=== PATIENT | male | born 1950 | race Caucasian/White ===

== ENCOUNTER → 2023-04-12 07:56 | Outpatient (REF) | payer MEDICARE, OTHER, SELFPAY | LOC: PAVMRI 07:56 | PROVIDERS: ATTENDING PHYSICIAN Internal Medicine Cardiovascular Disease; FAMILY PHYSICIAN Family Medicine; REFERRING PHYSICIAN Internal Medicine Cardiovascular Disease | DX: I48.91 Unspecified atrial fibrillation (principal); I49.3 Ventricular premature depolarization; I10 Essential (primary) hypertension | CPT/HCPCS: 75561; 75565; A9585 ==

== ENCOUNTER 2023-08-04 08:38 | Day surgery (SDC) | payer MEDICARE, OTHER, SELFPAY ==
[2023-07-19 09:30] VITALS: BMI 27.9
--- NOTE | 2023-07-19 10:29 | HPS.HSE ---
Family Physician
-
Family Physician: NO INTERVIEW UNKNOWN
Chief Complaint
-
PVCs.
History of Present Illness
The patient is a 72 year old male presenting today for PVCs. He is relatively asymptomatic with this diagnosis. He states that while undergoing a previous colonoscopy, the hospital staff alerted him as to 'something abnormal' on his EKG.
He was subsequently evaluated by his chiropractic care and noted to have PVCs. He then underwent testing for his PVCs and, during an exercise stress test, was also found to have paroxysmal atrial fibrillation with a spontaneous return to normal sinus
rhythm. He is on current pharmacological therapy with Carvedilol. He has been compliant with Eliquis for oral anticoagulation. A more recent Holter monitor revealed 39,000 PVCs with 70 runs, the longest of which was 6 beats. A 5 day CAM monitor
demonstrated a 29% PVC burden. Given the frequency of his PVCs, it is recommended he proceed with an EP study and PVC ablation. He denies any current complaints today such as chest pain, shortness of breath, nausea, vomiting, diarrhea,
lightheadedness, dizziness, cough, sore throat, or fever.
Medical History
Past Medical History
Past Medical History: Reports Other
Additional Past Medical History:
1. PVCs.
2. Paroxysmal atrial fibrillation, pharmacological therapy with Carvedilol, oral anticoagulation with Eliquis.
3. Hypertension.
4. Right carotid bruit.
5. Mild mitral regurgitation.
6. Mild tricuspid regurgitation.
7. Emphysema per records.
8. Colon polyps.
9. Osteoarthritis, status post right total hip arthroplasty 2017.
10. Bladder dysfunction requiring self catheterization.
11. Agent orange exposure.
12. Hearing impairment bilaterally.
13. Remote history of tobacco abuse.
Past Surgical History: Reports Other
Additional Past Surgical History:
1. Right total hip arthroplasty.
2. Ureteroplasty.
3. Bladder diverticulum removal.
4. Multiple colonoscopies.
Social History
Tobacco: Former Smoker (He is a former 1 pack per day cigarette smoker who quit tobacco altogether 20 years ago. )
Alcohol: Other (He drinks wine approximately 1 day a week. )
Personal:
Living: Other (He lives in a 2 story home with his . )
Family History
Family History: Not pertinent
Allergies / Home Medications
Allergy/Medication List:
Home medications:
1. Amlodipine 5 mg p.o. daily.
2. Eliquis 5 mg p.o. twice a day.
3. Carvedilol 6.25 mg p.o. twice a day.
4. Magnesium 500 mg p.o. daily.
Allergies: No known allergies.
Review of Systems
-
A 12 point ROS was completed and negative except as noted: Yes
Physical Exam
Vital Signs
Blood pressure 149/76. Heart rate 64. Respirations 18. Pulse ox 98% on room air.
Height 5 feet, 10.5 inches. Weight 89.3 kg. BMI 27.8.
Physical Exam
General: Well Developed, Well Nourished and No Apparent Distress
HEENT: NormoCephalic, Moist mucous membranes, Atraumatic and PERRLA
Respiratory: Clear
Cardiac: Regular Rhythm (with frequent ectopy. ) and Carotid Bruits (Right-sided )
GI: Soft, Non Tender and Non Distended
Musculoskeletal: Normal Gait & Station
Skin: Warm and Dry
Neuro: AO x 3 and Nonfocal/grossly intact
Laboratory Results
-
DIAGNOSTIC STUDIES as of 07/19/2023: White blood cell count 7.0. Hemoglobin 14.2. Platelet count 175,000. PT 14.6. INR 1.16. Sodium 139. Potassium 4.8. BUN 28. Creatinine 1.1. Glucose 95. Calcium 9.5. Magnesium 2.2. AST 29. ALT 24. Albumin 4.1. Type
and screen A positive.
EKG 07/19/2023: Sinus rhythm with marked sinus arrhythmia with first degree AV block and frequent PVCs.
Impression/Plan
-
IMPRESSION/PLAN:
1. PVCs: The patient is in need of an EP study and PVC ablation with Dr. Joni Hagen on 08/04/2023. The benefits and risks of the procedure have been explained to the patient. The patient understands these risks and wishes to proceed. He is aware
to hold his Carvedilol 72 hours prior to his procedure. He will also hold his Eliquis the night before and morning of his procedure.
[2023-08-04] VITALS (17 sets, daily range): BP systolic 128–157; BP diastolic 76–93
[2023-08-04] MEDS: NSS 500 IV (09:37)
--- NOTE | 2023-08-04 10:40 | PTCARENOTE ---
Pt self cathed at this time
--- NOTE | 2023-08-04 11:23 | ITS.CL.ABL ---
Naturopath - Ablation
Ablation
Procedure Report:
Primary Airport Ramp Supervisor: Popeye Humphrey MD
Procedure Date: 08/04/2023
Patient History:
The patient is a pleasant 73-year-old male with a past medical history significant for hypertension, bladder dysfunction, PAF, PVCs with 29% burden; noted normal LVEF on TTE but reduced on CMR (unclear if ectopy driven gating issue).
See H&P for complete history.
Indication:
High burden monomorphic PVCs
Reduced LVEF on CMR
Procedure
X PVC/VT Ablation procedure (78451) -- includes 3D mapping
X +LA/CS pacing (73204)
X +Intracardiac ultrasound (72060)
[ ]+Transseptal (24472)
[ ]+IV drug (01980)
[ ]+Other Arrhythmia (89478)
Method
NPO status confirmed. Grounding pad applied. Defibrillator pads applied. Continuous surface ECG, pulse oximetry, and blood pressure were monitored. Procedure was performed under general anesthesia, with anesthesia services.
Both groins were clipped, prepped with Chloraprep, and draped in sterile fashion. Time out was called. Local anesthesia administered. The right and left femoral veins were accessed for catheter placement, using ultrasound guidance, micro-puncture
needle/wire, and modified seldinger technique. 3 sheaths were placed. Arterial access was obtained using ultrasound guidance and a short 5fr sheath was placed upsized to braided long 9 fr sheath.
The following catheters were used:
X TactiFlex SE (D/F-curve) ablation catheter
X Viewflex 9Fr ICE catheter
X Inquiry decapolar 6Fr diagnostic catheter
[ ] 6Fr quadrapolar diagnostic catheter
X HD Grid multielectrode mapping catheter
Heparin was given following arterial access. Heparin was given to achieve and maintain a target ACT of 300-400 seconds.
ICE and 3D mapping was performed to identify relevant cardiac structures. A careful 3D map was created to assess for regions of low-voltage and abnormal electrogram signals (late potentials, fractionation). See synopsis for details.
Catheter-based radiofrequency ablation was performed using a [employer] power generator. Target power was 30-40 [place]. See synopsis for details
At procedure conclusion, ICE was used to rule out pericardial effusion. Hemostasis was obtained with figure of 8 suture at left groin(venous access) and manual pressure for arterial access (right groin). Protamine was used for reversal. ACT < 150
for arterial sheath pull.
Estimated Blood Loss
5-10 mL
Complications
None
Procedure Synopsis:
LV mapping was performed using HD grid catheter. Area of earliest activation for PVC was mapped to the area of the posterior medial Pap/left posterior fascicle the inferior portion of the LV near septum/base. Careful attention was placed in not
only taking area of PVC activation but the conduction system. Following high density mapping, HD grid was replaced with the Tinteo SE irrigated RF catheter. Mapping was fine-tuned with the ablation catheter with passive PVC mapping and pace
mapping. Spot of earliest activation was noted at 24 ms pre-QRS with a QS pattern on unipolar EGM. Pace mapping demonstrated 12 out of 12 morphology match. RF was delivered with careful monitoring of impedance, temperature, time. Following
initial ablation lesion, there was suppression of PVCs. Consolidation ablation was performed in this region again with careful monitoring of conduction system. There was no evidence of AV block during RF. Areas with his signal or atrial signal
were avoided. Following completion of RF lesions, a waiting period was performed. No clinical PVCs were noted for greater than 30 minutes. Following completion of procedure, electrophysiology study was performed. Catheter was removed and
hemostasis achieved as noted above.
Fluoroscopy: 8.5 minutes; 23.15 mGy; DAP 3.28
Contrast used: 0 cc
Baseline Intervals:
Rhythm: SR
NV: 196 ms
QRS: 75 ms
QT: 369 ms
QTc: 359 ms
A-A: 1056 ms
R-R: 1056 ms
AH: 111 ms
HV: 53 ms
Post-Procedure Intervals:
Rhythm: SR
NV: 201 ms
QRS: 78 ms
QT: 411 ms
QTc: 406 ms
A-A: 1025 ms
R-R: 1025 ms
AVWB: 500 ms
AVNERP: 600/450 ms; no inducible arrhythmias.
AH: 127 ms
HV: 58 ms
Recommendations
1. Bedrest with straight-leg precautions as ordered
2. Admit with anticipate discharge home tomorrow after overnight observation
3. Resume home medications as indicated
4. Ok to resume anticoagulation if patient and groin sites stable
5. Plan for follow-up in office
Joni Hagen DO
Clinical Cardiac Brand Manager
cc: Popeye Humphrey MD
[2023-08-04 12:34] LABS: ACT-LR - POC 261 Seconds (116-155)
[2023-08-04 12:51] LABS: ACT-LR - POC 324 Seconds (116-155)
[2023-08-04 13:09] LABS: ACT-LR - POC 334 Seconds (116-155)
[2023-08-04 13:47] LABS: ACT-LR - POC 397 Seconds (116-155)
[2023-08-04 14:10] LABS: ACT-LR - POC 145 Seconds (116-155)
[2023-08-04 15:31] LABS: ACT-LR - POC > 397 Seconds (116-155)
--- NOTE | 2023-08-04 18:31 | PTCARENOTE ---
Pt received post procedure awake, alert and oriented. Bilateral groin sites WNL. Pt denies any pain or discomfort. Room air sat 99%. Pt OOB post bedrest at 1830 and ambulated to the bathroom to straight cath himself. Bilateral groin dressings dry
after ambulating.
[2023-08-04] MEDS: COREG 6.25 MG PO (19:25)
--- NOTE | 2023-08-04 20:26 | PTCARENOTE ---
Assumed care of patient at change of shift. Patient AAOx3, denies any chest pain or discomfort. Ambulated self in room, denies dizziness. B/l groin site dressings C/D/I, and DP palpable. Tele monitor shows SR w/ 1st AV block and occasional PVCs.
Patient aware of POC, and call vann in reach.
[2023-08-05 03:32] VITALS: BP 156/92
[2023-08-05 04:01] LABS: Hematocrit 39.2 % (39.0-52.0); Hemoglobin 13.4 g/dL (13.0-18.0); Mean Corp Hgb Conc. 34.2 g/dL (33.0-37.0); Mean Corpuscular Hgb 32.8 pg (27.0-31.0); Mean Corpuscular Volume 96.1 fL (80.0-94.0); Mean Platelet Volume 10.6 fL (7.4-10.4); Platelet Count 136 10^3/uL (130-400); Red Blood Cell Count 4.08 10^6/uL (4.70-6.10); Red Cell Dist. Width 12.3 % (11.5-14.5); White Blood Cell Count 6.6 10^3/uL (4.8-10.8)
[2023-08-05 04:28] LABS: Blood Urea Nitrogen 16 mg/dl (9-20); Calcium 8.6 mg/dl (8.4-10.2); Carbon Dioxide 25 mmol/L (22-30); Chloride 108 mmol/L (98-107); Estimated Creatinine Clearance 77 ml/min; Glucose 90 mg/dl (70-99); Magnesium 2.1 mg/dl (1.6-2.3); Potassium 4.1 mmol/L (3.5-5.1); Sodium 139 mmol/L (135-145); eGFR > 60.00
[2023-08-05] MEDS: NORVASC 5 MG PO (07:18)
[2023-08-05] MEDS: COREG 6.25 MG PO (07:18)
[2023-08-05] MEDS: MAGNESIUM OXIDE 500 MG PO (07:18)
[2023-08-05] MEDS: ELIQUIS 5 MG PO (07:18)
[2023-08-05 07:21] VITALS: BP 159/97
[2023-08-05 07:22] VITALS: BP 159/92
--- NOTE | 2023-08-05 09:07 | CM ---
Chart reviewed. Patient is independent of ADLS, lives with his in a [address], [address], 0 DME. Plan is for the patient to return home.
--- NOTE | 2023-08-05 10:05 | W.PN.CARDCBS ---
Addendum entered and electronically signed by Kvng Lino MD 08/05/23 10:39:
Patient seen and examined
Telemetry demonstrates no PVCs and 1 4 beat NSVT
CUP SETTER LOCKSTITCH note and assessment
Agree with CUP SETTER LOCKSTITCH plan
Examination:
Right femoral arterial access site and left femoral vein access site demonstrate no hematoma or bruit
Cor regular
Alert and orient x 3
Nonfocal neurologically
Remainder of exam per CUP SETTER LOCKSTITCH note
Impression:
Symptomatic PVC with 29% burden on holtor
post PVC ablation 08/04/23
PAF on OAC
HTN
Right carotid bruit.
Mild mitral regurgitation.
Mild tricuspid regurgitation.
Emphysema per records.
Colon polyps.
Osteoarthritis, status post right total hip arthroplasty 2016.
Bladder dysfunction requiring self catheterization.
Agent orange exposure.
Hearing impairment bilaterally.
Remote history of tobacco abuse.
Plan:
post ablation feels good
groins stable
tele 5b NSVT
continue OAC Eliquis for PAF
HTN continue carvedilol and amlodipine
Activity restrictions reviewed
f/u Dr. Hagen 1 mo, will discuss plans for Afib at that time
stable for d/c home
Original Note:
Today's Communication / Plan
-
stable for d/c home
Impression / Plan
-
PCP: Dr. Park
CDY: Aristides Hagen, DO
Impression:
Symptomatic PVC with 29% burden on holtor
post PVC ablation 08/04/23
PAF on OAC
HTN
Right carotid bruit.
Mild mitral regurgitation.
Mild tricuspid regurgitation.
Emphysema per records.
Colon polyps.
Osteoarthritis, status post right total hip arthroplasty 2016.
Bladder dysfunction requiring self catheterization.
Agent orange exposure.
Hearing impairment bilaterally.
Remote history of tobacco abuse.
Plan:
post ablation feels good
groins stable
tele 5b NSVT
continue OAC Eliquis for PAF
HTN continue carvedilol and amlodipine
Activity restrictions reviewed
f/u Dr. Hagen 1 mo, will discuss plans for Afib at that time
stable for d/c home
Progress Note - Pulp Machine Operator
Subjective
Date of Service: August 05, 2023
no cp, sob
Objective
Labs:
08/05/23 03:47
08/05/23 03:47
Labs
Hgb 13.4 g/dL (13.0-18.0) 08/05/23 03:47
Hct 39.2 % (39.0-52.0) 08/05/23 03:47
Plt Count 136 10^3/uL (130-400) 08/05/23 03:47
Sodium 139 mmol/L (135-145) 08/05/23 03:47
Potassium 4.1 mmol/L (3.5-5.1) 08/05/23 03:47
BUN 16 mg/dl (9-20) 08/05/23 03:47
Creatinine 0.9 mg/dL (0.7-1.3) 08/05/23 03:47
Glucose 90 mg/dl (70-99) 08/05/23 03:47
Vital Signs and I&O:
Vital Signs
Temp Pulse Resp BP Pulse Ox
97.8 F 88 20 159/92 99
08/05/23 07:35 08/05/23 08:00 08/05/23 07:35 08/05/23 07:22 08/05/23 08:00
Vital Signs
Temp Pulse Resp BP Pulse Ox
97.8 F 88 20 159/92 99
08/05/23 07:35 08/05/23 08:00 08/05/23 07:35 08/05/23 07:22 08/05/23 08:00
Intake & Output
08/03/23 08/04/23 08/05/23 08/06/23
06:59 06:59 06:59 06:59
Intake Total 520 / 520
Balance 520 / 520
Physical Exam
Physical Exam
NAD< AOX3
S1, S2, RRR
CTAB, non labored
SNTND bsx4
b/l groins c/d/i no HT
--- NOTE | 2023-08-05 10:13 | PTCARENOTE ---
Pt received this am with no c/o of any pain or sob. OOB ad chava in the room. Bilateral groin site dressings dry and intact with no hematoma. Pt discharged to home with his . Discharge instructions given and reviewed with good understanding.
--- NOTE | 2023-08-05 13:44 | W.DS.TRANS ---
DC Summary - Despatch Clerk
-
Discharge Instructions:
Discharge Diagnosis/Procedures PVC post ablation
Diet Low Cholesterol
Driving Restrictions No driving for 24 hours
Instructions:
Stand-Alone Forms: DC Instructions- Cath/EP Lab
Changes to Home Medications: No
Discharge Medications:
DC Medications w/original date entered in [facility]
amlodipine 5 mg tablet 5 mg PO DAILY 07/15/23
apixaban 5 mg tablet (Eliquis) 5 mg PO BID 07/15/23
carvedilol 6.25 mg tablet 6.25 mg PO BID 07/15/23
magnesium 250 mg tablet 500 mg PO DAILY 07/15/23
Home Medication Changes
Pending Results: No
== END 2023-08-05 11:01 | disposition home or self-care (01) ==
LOC: CATH 08:38
PROVIDERS: Nurse Practitioner Adult Health; ATTENDING PHYSICIAN Internal Medicine Cardiovascular Disease
DX: I48.0 Paroxysmal atrial fibrillation (principal); I10 Essential (primary) hypertension; I49.3 Ventricular premature depolarization; N31.9 Neuromuscular dysfunction of bladder, unspecified; R09.89 Other specified symptoms and signs involving the circulatory and respiratory systems; I08.1 Rheumatic disorders of both mitral and tricuspid valves; J43.9 Emphysema, unspecified; K63.5 Polyp of colon; M19.90 Unspecified osteoarthritis, unspecified site; Z96.649 Presence of unspecified artificial hip joint; Z87.891 Personal history of nicotine dependence; Z79.01 Long term (current) use of anticoagulants
CPT/HCPCS: 93662; C1732; C1894; C1769; C1759; 80048; 83735; 85027; 85347; 86900; 86901; 93005; 93654

== ENCOUNTER → 2023-10-04 14:24 | Outpatient (REF) | payer MEDICARE, OTHER, SELFPAY | LOC: RCS 14:24 | PROVIDERS: ATTENDING PHYSICIAN Internal Medicine Cardiovascular Disease; FAMILY PHYSICIAN Family Medicine; REFERRING PHYSICIAN Internal Medicine Cardiovascular Disease | DX: I49.3 Ventricular premature depolarization (principal) | CPT/HCPCS: 93306 ==

== ENCOUNTER 2023-12-15 05:55 | Day surgery (SDC) | payer MEDICARE, OTHER, SELFPAY ==
[2023-11-26 09:24] VITALS: BMI 29.3
[2023-12-15] VITALS (14 sets, daily range): BP systolic 107–155; BP diastolic 72–97; BMI 28.7
[2023-12-15 09:01] LABS: ACT-LR - POC 319 Seconds (116-155)
[2023-12-15 09:01] LABS: ACT-LR - POC 277 Seconds (116-155)
[2023-12-15 09:25] LABS: ACT-LR - POC 385 Seconds (116-155)
[2023-12-15 09:54] LABS: ACT-LR - POC 145 Seconds (116-155)
--- NOTE | 2023-12-15 13:03 | ITS.CL.ABL ---
Order Detailer - Ablation
Ablation
Procedure Report:
Primary Stoner Hand: Dr Popeye Humphrey
Procedure Date: 12/15/2023
Patient History:
Patient is a pleasant 73-year-old male with a past medical history of hypertension, bladder dysfunction, PAF, and PVCs status post RFA.
See H&P for complete details.
Indication:
Symptomatic paroxysmal atrial fibrillation
Mildly reduced ejection fraction by CMR
Arrhythmia Specific History:
Prior Medical Therapies for Rate and Rhythm Control:
X Beta-marialuisa
[ ] Calcium channel-marialuisa
[ ] Amiodarone
[ ] Dronederone
[ ] Sotalol
[ ] Flecainide
[ ] Dofetilide
[ ] Options limited by bradycardia
[ ] Options limited by comorbid renal disease
Prior Procedural Therapies for AF/AFL:
[ ] Cardioversion
[ ] Pulmonary Vein Isolation
[ ] Posterior Wall Isolation
[ ] Additional lines (Specify)
[ ] Surgical Guallpa-MAZE or PVI (Specify)
Procedure Performed:
X AF ablation procedure (66689) -- includes LA/CS pacing, trans-septal, 3D mapping, + ICE
[ ] +IV drug (84782)
[ ] +Other Arrhythmia (85158)
[ ] +Other AF Line/ablation (47086)
Risks and expected recovery has been explained in detail. Alternative options have been explored, and in a shared-decision making fashion we have decided that this was the most appropriate procedure.
Method
NPO status confirmed. Grounding pad applied. Defibrillator pads applied. Continuous surface ECG, pulse oximetry, and blood pressure were monitored. Procedure was performed under general anesthesia, with anesthesia services.
Both groins were clipped, prepped with Chloraprep, and draped in sterile fashion. Time out was called. Local anesthesia administered with bupivacaine. The right and left femoral veins were accessed for catheter placement, using ultrasound guidance,
micro-puncture needle/wire, and modified seldinger technique. 3 sheaths were placed. The following catheters were used:
[ ] Tacticath SE (D/F Curve) ablation catheter
X Viewflex 9Fr ICE catheter
X Inquiry decapolar 6Fr diagnostic catheter
[ ] CRD Hex 6Fr
[ ] Arctic Front Advance Cryoballoon ([ ]28mm[ ]23mm)
[ ] Achieve Advance mapping catheter ([ ]15mm[ ]20mm)
X FlexCath Contour 10 Fr with PulseSelect PFA Catheter
X Advisor HD Grid Mapping Catheter, SE
[ ] Acuson AcuNav 8 Fr ICE catheter
[ ]Other: [ ]
Intracardiac ultrasound (ICE) was carefully advanced into the right atrium to guide sheath placement over a J-wire, catheter placement, guide trans-septal puncture, identify potential complications, identify anatomic structures and ensure proper
contact between ablation catheter and tissue.
Heparin was given prior to trans-septal puncture. Heparin was given to achieve and maintain a target ACT of 300-400 seconds throughout the procedure.
Trans-septal access was performed under ICE guidance. The trans-septal puncture was performed with a SafeSept wire through a [employer]enbrough needle assembly through the steerable sheath. The wire was visualized as it entered the LSPV and system
advanced under ICE guidance and fluoroscopy into the LA. The Brockenbrough needle assembly, SafeSept wire and sheath dilator were removed under negative pressure. LA pressure was measured and recorded.
ICE and 3D mapping was performed to identify relevant cardiac structures. A careful 3D map was created to assess for regions of low-voltage and abnormal electrogram signals using HD grid mapping catheter and PulseSelect catheter. Additional mapping
was performed as outlined below.
Prior to ablation, glycopyrrolate was provided. PulseSelect catheter was advanced over J-wire to the ostium of each vein. Pulmonary vein isolation was performed with ostial and antral lesions in a circumferential manner. Contact was visualized via
EAM, ICE, fluoroscopy, and EGM signals. Following completion of ablation lesions, a post-ablation voltage/activation map was performed in sinus rhythm. Entrance and exit block were confirmed for each vein.
Catheter and sheath were removed from the left atrium and post-ablation intracardiac echo evaluation was consistent with pre-ablation with no changes and no pericardial effusion and there is no left atrial thrombus or left ventricle thrombus seen.
Electrophysiology study was performed. Hemostasis was obtained with Vascade for each sheath and with manual pressure. Protamine was used for reversal.
Estimated Blood Loss
5 mL
Complications
None
Fluoroscopy: 4.2 minutes; 12.37 mGy; DAP 2.15
Baseline Intervals:
Rhythm: SR
LA: 180 ms
QRS: 78 ms
QT: 340 ms
QTc: 402 ms
A-A: 716 ms
R-R: 716 ms
Post-Procedure Intervals:
LA: 198 ms
QRS: 63 ms
QT: 371 ms
QTc: 400 ms
A-A: 861 ms
R-R: 861 ms
AVWB: 440 ms
AVNERP: 600/260 ms
Recommendations
- Bedrest with straight-leg precautions as ordered
- Anticipate same day discharge if patient meeting clinical metrics
- Resume home medications as indicated
- Ok to resume anticoagulation tonight if patient and groin sites stable
- PPI daily for 30 days
- Plan for follow-up in office as scheduled
Joni Hagen DO
Clinical Cardiac Photographer Assistant
cc: Elver Park DO; Popeye Humphrey MD
--- NOTE | 2023-12-15 14:30 | W.PN.UPDATE ---
Update Note
Progress Note Update
PT seen post PFA. Right groin with vascade closure, small ooze post op, manual compression held and new dressing CDI. OOB ambulating. He self-caths at home and continues to do so here in recovery. Post EKG NSR 80s. Resume eliquis tonight, continue
other meds as before. Followup at [facility] arranged and with Dr. Humphrey thereafter. Home later today if groin site/tele remain stable
== END 2023-12-15 14:50 | disposition home or self-care (01) ==
LOC: CATH 05:55
PROVIDERS: ATTENDING PHYSICIAN Internal Medicine Cardiovascular Disease; FAMILY PHYSICIAN Family Medicine
DX: I48.0 Paroxysmal atrial fibrillation (principal); I10 Essential (primary) hypertension; Z79.01 Long term (current) use of anticoagulants; Z79.899 Other long term (current) drug therapy; Z87.891 Personal history of nicotine dependence; N31.9 Neuromuscular dysfunction of bladder, unspecified; J43.9 Emphysema, unspecified; H91.90 Unspecified hearing loss, unspecified ear; R09.89 Other specified symptoms and signs involving the circulatory and respiratory systems; Z86.79 Personal history of other diseases of the circulatory system; M19.90 Unspecified osteoarthritis, unspecified site; Z98.890 Other specified postprocedural states
CPT/HCPCS: C1732; C1894; C1733; C1769; 85347; 93005; 93656; C1760